=== PATIENT | male | born 2000 | race Native Hawaiian/Other Pacific Islander ===

== ENCOUNTER 2023-05-10 14:04 | Emergency (ER) | payer BC, SELFPAY ==
[2023-05-10 14:11] VITALS: BP 126/61; PULSE 61; RESP 16; TEMP 36.5; O2SAT 97; BMI 23.5
--- NOTE | 2023-05-10 14:21 | CRLHL7_ITS ---
For Patients: As a result of the Cures Act, medical imaging exams and procedure reports are released immediately into your electronic medical record. You may view this report before your referring provider. If you have questions, please contact your health care provider. Indication: Several day history of knee pain. Technique: Four views left knee. Comparison: None Findings: No fracture or dislocation. Normal alignment. No significant degenerative changes. Soft tissues unremarkable. Impression: No fracture or dislocation. Dictated by Lizandro Keane MD @ 05/10/2023 3:50:34 PM (Electronically Signed)
--- NOTE | 2023-05-10 14:29 | ED.GENADULT ---
HPI - General Adult General Time Seen by Provider: 14:47 Date Seen: 05/10/23 Chief complaint: Extremity Pain/Injury, Lower Stated complaint: L knee pain Time Seen by Provider: 05/10/23 14:07 Source: patient Mode of arrival: ambulatory Limitations: no limitations History of Present Illness HPI narrative: Patient is a 22-year-old male with no pertinent medical problems presenting to the emergency department for left knee pain. He states the pain started yesterday. States while he was walking he heard a popping sound sound in his left knee the knee become painful. Is not aware of any injuries in the knee. States it was not twisted and turning when this occurred. Denies any injuries. Denies numbness or weakness. Patient states he is able to ambulate but it is very difficult and painful. He has had no change in the pain. Has not noticed any swelling or warmth to with. Denies fevers, chills. Related Data Home Medications Medication Instructions Recorded Confirmed No Known Home Medications 03/23/23 03/23/23 Allergies Allergy/AdvReac Type Severity Reaction Status Date / Time No Known Drug Allergies Allergy Verified 03/23/23 13:33 Review of Systems Status of ROS: Reports: 6 or more systems reviewed and unremarkable except as noted in History and below [facility] Social History Smoking Status: Never smoker Do you use any of these nicotine containing products: None Second hand tobacco smoke exposure: No How often do you have a drink containing alcohol: never How often do you have six or more drinks on one occasion: Never AUDIT-C Alcohol total score: 0 Non-prescribed substance use: denies use service: No Exam Narrative: Exam Narrative: Const: Well-nourished, Well-developed, in mild distress Eyes: PERRL, no conjunctival injection, and symmetrical lids ENMT: Atraumatic external nose and ears. Moist mucous membranes. MSK:Extremities w/o deformity, decreased range of motion left knee secondary to pain. Some tenderness noted to the patient's knee on both the medial and lateral aspect and over the patella. Skin: Warm, Dry. No rashes or lesions. Neuro: Normal Muscle tone, No focal neurological deficits. Psych: Awake, Alert, & Oriented x3. Appropriate mood and affect. Const: Vital Signs, click to edit/add: Vital Signs - 24 hr 05/10/23 14:11 Temperature 97.7 F Pulse Rate [Pulse Oximeter] 61 Respiratory Rate 16 Blood Pressure [Ri ght Upper Arm] 126/61 Pulse Oximetry 97 Oxygen Delivery Me thod Room Air Course Vital Signs Vital signs: Initial Vital Signs Temperature 97.7 F 05/10/23 14:11 Temperature Source Temporal Artery Scan 05/10/23 14:11 Pulse Rate 61 05/10/23 14:11 Pulse Rhythm Regular 05/10/23 14:11 Respiratory Rate 16 05/10/23 14:11 Blood Pressure 126/61 05/10/23 14:11 Blood Pressure Mean 82 05/10/23 14:11 Blood Pressure Position Supine 05/10/23 14:11 Pulse Oximetry 97 05/10/23 14:11 Oxygen Delivery Method Room Air 05/10/23 14:11 Vital Signs Temperature 97.7 F 05/10/23 14:11 Pulse Rate 61 05/10/23 14:11 Respiratory Rate 16 05/10/23 14:11 Blood Pressure 126/61 05/10/23 14:11 Pulse Oximetry 97 05/10/23 14:11 Oxygen Delivery Method Room Air 05/10/23 14:11 Temperature 97.7 F 05/10/23 14:11 Pulse Rate 61 05/10/23 14:11 Respiratory Rate 16 05/10/23 14:11 Blood Pressure 126/61 05/10/23 14:11 Pulse Oximetry 97 05/10/23 14:11 Oxygen Delivery Method Room Air 05/10/23 14:11 Medical Decision Making MDM Narrative Medical decision making narrative: Patient is 22 years male presents emergency department for left knee pain. He says the pain started suddenly while he was walking. Does not note any injuries to it that he is aware of. Pain is unchanged since it 1st started yesterday. Did take Aleve for pain with minimal improvement. Denies ever hurting the knee before. Patient was given Toradol for pain. Patient's knee it does not appear swollen at this time and there is no erythema or warmth to the knee. Gout and septic arthritis very unlikely at this time. I do not believe a arthrocentesis is necessary. I do not believe any lab work is required at this time. We will do an x-ray to rule out any fractures. Those resulted in returned showing no concerning abnormalities. We are unable to definitively rule out a strain or sprain but he is doing well and we discharged home. We gave him information for primary care follow-up. Carlos wrap was placed around his knee. He was pain was better after the Toradol. Patient was offered crutches and states he does not need them at this time. Differential Diagnosis Differential Diagnosis: Fracture, septic arthritis, gout, muscle strain, knee sprain Imaging Data X-ray-left knee: Attestation: I have reviewed the pertinent imaging results. Radiologist's impression: No fracture or dislocation. Discharge Plan Discharge Clinical Impression: Knee sprain Qualifiers: Encounter type: initial encounter Involved ligament of knee: unspecified ligament Laterality: left Qualified Code(s): S83.92XA - Sprain of unspecified site of left knee, initial encounter Patient Disposition: Home, Self-Care Condition: Improved Instructions: Knee Sprain (DC) Additional Instructions: We gave information to set up primary care follow-up. Take Tylenol and ibuprofen for pain. There is no signs of fracture of this time but we are unable to definitively rule out soft tissue injuries. When she primary care or Orthopedics we can further evaluate her knee with further imaging if pain is not improving. Return for new or worsening symptoms Prescriptions: No Action No Known Home Medications Follow Up/Referrals: Provider,Not a Local [Primary Care Provider] - Stand Alone Forms: ChoiceMap Info Instructions
[2023-05-10] MEDS: KETOROLAC 30 MG/ML inj IM (14:31)
[2023-05-10 16:01] VITALS: BP 129/67; PULSE 57; O2SAT 99
--- NOTE | 2023-05-10 16:01 | ED.NURSE ---
SUSIE wrap applied to pt L knee.
--- NOTE | 2023-05-10 18:13 | ED.NURSE ---
[facility] in [place], [place] called stating patient is now in the ER there requesting an MRI of his knee. XRay images have been pushed. Will send the XRay report to fax #[phone]
== END 2023-05-10 16:06 | disposition home or self-care (01) ==
PROVIDERS: Emergency Provider Student in an Organized Health Care Education/Training Program
DX: S83.92XA Sprain of unspecified site of left knee, initial encounter (principal)
CPT/HCPCS: 73564; 96372; 99282; 99283; J1885

== ENCOUNTER 2025-01-16 14:47 | Emergency (ER) | payer OTHER, SELFPAY ==
--- OUTSIDE RECORDS SUMMARY | 2025-01-16 14:50 | XMS_ITS | Clinical Summary ---
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 Overview (10/13/2019): pos breath test Resolved Problems Problem Noted Date Diagnosed Date Resolved Date Chronic diarrhea 03/05/2018 02/04/2024 Reactive airway disease 03/28/200901/24 Immunizations Immunization Administration Dates Next Due COVID-19 vaccine (DatalinkBio NTech 30mcg/0.3mL) 12YO+ MAGGIE-SUCROSE PF, MDV 03/18/2022 DTaP 05/27/2007, 6,12/07/2003,03/07,01/27/2003,2002 HIB-HepB (Comvax) 09/04/2003,01/27/2003,11/04/19 03 HPV 9 (Gardasil 9) 10/09/2022,09/17/2015 Hepatitis A (Peds) 09/03/2010, 0,09/12/2008,03/02 Human Papilloma Virus Vaccine 08/21/2014, 013 Inactivated Polio Vaccine 05/27/2007,,09/04/2003,01/27,2002 Influenza A (H1N1), Inactiva kenrick (Age >=3 Years) 12/17/2009 Influenza A (H1N1), Live Intranasal 11/19/2009 Influenza, IIV3 (Age >=3 years) 09/03/20 10,10/31/2008,10/21/2006,09/09,10/02/2003,09/04/2003 Influenza, IIV4 10/09/2022, 0,10/11/2019,10/08,01/06/2017,07/25/2015,07/27/2014 Influenza, IIV4 (=>6mos) MDV 10/02/2017 Influenza,LAIV4 Live Intrana ronn (Flumist) 07/12/2013 MENINGOCOCCAL VACCINE 2 VIAL 2MO-55YO (MENVEO) 10/08/2018,08/21/2014 MMR 05/27/2007,10/21/2006,02/26/2004 MMRV 10/21/2006 Meningococcal B 11/20/2020,10/12/2020 Pneumococcal conj 7-Valent (Prevnar 7) 0 12/07/2003,03/07/2003,01/27/2003,11/04 Tdap 02/04/2024,08/21/2014,07/12/2013 Varicella Vaccine 12/04/2009,09/04/2003 Family History Medical History Relation Name Comments Good Health Father Genetic Other mother pituitar y tumor~no DM, CA~no SLE, RA Good Health Sister Relation Name Status Comments Father Other Sister Social History Tobacco Use Types Packs/Day Years Used Date Smoking Tobacco: Never Passive Smoke Exposure: Never Smokeless Tobacco: Never Tobacco Cessation:Counseling Given: Not Answered Comments:nonsmoking home Alcohol Use Standard Drinks/Week Comments No 0 (1 standard drink = 0.6 oz pur e alcohol) PHQ-2 Answer Date Recorded PHQ-2 TOTAL SCORE 0 06/16/2024 Social Connections Answer Date Recorded Do you often feel lonely or isolated from those around you? 0 02/04/2024 Financial Resource Strain Answer Date R ecorded Difficulty of Paying Living Expenses 3 02/04/2024 Difficulty of Paying Living Expenses Not on file 02/04/2024 Food Insecurity Answer Date Recorded Do you worry your food will run out before you are able to buy more? 1 02/04/2024 Transportation Needs Answer Date Record ed Does lack of transportation keep you from medica l appointments? 1 02/04/2024 Does lack of transportation keep you from work, meetings or getting things that you need? 1 02/04/2024 Housing Stability Answer Date Recorded What is your housing situation today? 1 02/04/2024 Utilities Answer Date Recorded Do you have trouble paying f or utilities (for example, heat, electricity, water, phone)? 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[employer] Gender Identity Not on file Sexual Orientation Not on file Obstetrics History Last Filed Vital Signs Vital Sign Reading Time Taken Comments Blood Pressure 124/64 06/25/2024 12:10 PM CDT Pulse 58 06/25/2024 12:10 PM CDT Temperature 36.7 C (98 F) 06/25/2024 12:10 PM CDT Respiratory Rate 12 06/25/2024 12:10 PM CDT Oxygen Saturation 98% 06/25/2024 12:10 PM CDT Inhaled Oxygen Concentration - - Weight 69 kg (152 lb 3.2 oz) 06/16/2024 7:56 AM CDT Height 164.2 cm (5' 4.65) 06/16/2024 7:56 AM CD T Body Mass Index 25.61 06/16/2024 7:56 AM CDT Plan of Treatment Health Maintenance Due Date Last Done Comments COVID-19 vaccine series ( season) 2024 03/18/2022, 03/06/2021, 02/06/2021 Influenza Vaccine (#1) 2024 , 10/12/2020, 10/11/2019, Additional history exists BMI (ht and wt on same day) for age 18+ 06/16/2025 06/16/2024, 02/04/2024, 10/12/2020 Depression screening for age 12+ 06/16/2025 06/16/2024, 03/18/2022, 10/12/2020, Additional history exists Tetanus booster 02/03/2034 02/04/2024, 07/27, 07/12/2013 Pneumococcal series for age 6-49 Aged Out 12/07/2003, 03/07/2003, 01/27/2003, Additional history exists No longer eligible based on patient's age to complete this topic HIV for age 15-65 Completed 03/18/2022 HPV series for age 9-26 Completed 10/09/20, 09/17/2015, 08/21/2014, Additional history exists Hepatitis C screening for age 18-79 Completed 02/04/2024 Tdap Completed 02/04/2024, 07/27, 07/12/2013 Procedures Procedure Name Priority Date/Time Associated Diagnosis Comments ANTI HCV Routine 02/04/2024 4:00 PM CDT Need for hepatitis C screening test ANTI HIV 1/2 Routine 03/18/2022 12:26 PM CDT Screening for HIV (human immunodeficiency virus) from Last 3 Months or Most Recently Relevant to Health Maintenance Results * ANTI HCV (02/04/2024 4:00 PM CDT) HEPATITIS C ANTIBODY Non-Reacti ve Non-React joey 02/05/2024 2:04 PM CDT [facility] Comment:Please note, per www .CDC.gov: If a patient is known to be at high risk of HCV infection, or is symptomatic, and the physician's suspicion of HCV infection is high, HCV RNA testing is often employed and is of diagnostic value, even after an initial negative anti-HCV test result. Blood BLOOD SPECIMEN / Unknown Venipuncture / Unknown 02/04/2024 4:00 PM CDT 02/04/2024 5:02 PM CDT us Bruce Whalen MD SEND OUTS Final Result [facility] [address] [place] [address], [place] * ANTI HIV 1/2 (03/18/2022 12:26 PM CDT) HIV-1/HIV-2 ANTIBODY Non-Reacti ve Non-Reacti ve 03/18/2022 11:22 PM CDT [facility] Comment:HIV-1 p24 and HIV-1/ HIV-2 Ab not detected. Blood BLOOD SPECIMEN / Unknown Venipuncture / Unknown 03/18/2022 12:26 PM CDT 03/18/2022 12:26 PM CDT us Bruce Whalen MD SEND OUTS Final Result [facility] [address] [place] [address], [place] from Last 3 Months or Most Recently Relevant to Health Maintenance Insurance [facility] [employer] [id number] [place] [address] Care Teams Dietitian Relationship Specialty Start Date End Date Bruce Whalen MD [address] [place] [address] PCP - General Family Practice 10/11/19
--- OUTSIDE RECORDS SUMMARY | 2025-01-16 14:50 | XMS_ITS | Clinical Summary ---
Author Organization [facility] Address [address] [facility] [place] [address] Care Team Providers Care Corporate Sales Manager Name Role Phone [facility] Primary Care Provider Allergies No known active allergies Medications NO ACTIVE MEDICATIONS Active montelukast (SINGULAIR) 5 MG chewable tabletIndicatio ns:Intermittent asthma Take 1 tablet by mouth At Bedtime. 90 tablet 3 1 Active albuterol (PROVENTIL HFA: VENTOLIN HFA) 108 (90 BASE) MCG/ACT inhalerIndicati ons:Intermitten t asthma Inhale 2 puffs into the lungs every 4 hours as needed for shortness of breath / dyspnea. 1 Inhaler 1 1 Active albuterol (ACCUNEB) 1.25 MG/3ML nebulizer solutionIndicat ions:Intermitte nt asthma Take 3 mLs by nebulization every 4 hours as needed for shortness of breath / dyspnea. 50 vial 5 1 Active ibuprofen (ADVIL,MOTRIN) 100 MG/5ML suspension Take 20 mLs (400 mg) by mouth every 6 hours as needed 120 mL 0 4 Active HYDROcodone-jordyn taminophen (LORTAB) 7.5-325 MG/15ML solution Take 7.5 mLs by mouth 4 times daily as needed for moderate to severe pain 1 Bottle 0 4 Active ondansetron (ZOFRAN ODT) 4 MG ODT tab Take 1 tablet (4 mg) by mouth every 8 hours as needed for nausea 10 tablet 8 Active Active Problems Problem Noted Date Diagnosed Date Intermittent asthma 09/11/2011 Seasonal allergic rhinitis 09/11/2011 Tinea corporis 04/10/2011 Immunizations Name Administration Dates Next Due DTAP (<7y) 10/21/2006, 4,03/07/2003,01/27/2003, HEPA 09/03/2010,12/04/2009,09/12/2008 ,03/02/2008 HIB (PRP-T) 09/04/2003,01/27/2003,2002 HepB 09/04/2003,01/27/2003,2002 Influenza (H1N1) 12/17/2009,11/19/2009 Influenza (IIV3) PF 09/03/2010, 9,09/12/2008,10/21/2006,,10/02/2003 MMR (MMRII) 10/21/2006,02/26/2004 Pneumococcal 23 valent 12/07/2003,03/07/2003,01/2003,2002 Poliovirus, inactivated (IPV) 10/21/2006, 003,01/27/2003,2002 Varicella (Varivax) 12/04/2009,10/21/2006,2002 Family History Medical History Relation Comments Family History Negative No family hx of Relation Status Comments Father Alive Mother Alive Sister Alive Social History Tobacco Use Types Packs/Day Years Used Date Smoking Tobacco: Never Smokeless Tobacco: Never Alcohol Use Standard Drinks/Week Comments No 0 (1 standard drink = 0.6 oz pur e alcohol) Sex and Gender Information Value Date Recorded Sex Assigned at Not on file 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 Gender Identity Not on file Sexual Orientation Not on file Last Filed Vital Signs Vital Sign Reading Time Taken Comments Blood Pressure 152/72 08/31/2019 5:51 PM ROLL BUCKER Pulse 68 08/31/2019 4:51 PM ROLL BUCKER Temperature 36.4 C (97.6 F) 08/31/2019 4:51 PM ROLL BUCKER Respiratory Rate 18 08/31/2019 4:51 PM ROLL BUCKER Oxygen Saturation 98% 08/31/2019 4:51 PM ROLL BUCKER Inhaled Oxygen Concentration - - Weight 61.2 kg (134 lb 14.7 oz) 08/31/2019 4:51 PM ROLL BUCKER Height 127 cm (4' 2) 09/11/2011 4:13 PM ROLL BUCKER Body Mass Index - - Plan of Treatment Not on file Insurance [address] [place] [id number] none (Work) [address] [place] [id number] [facility] Care Teams Corporate Sales Manager Relationship Specialty Start Date End Date [address] [address] PCP - General 08/31/19
[2025-01-16 14:57] VITALS: BP 135/76; PULSE 62; RESP 16; TEMP 37.3; O2SAT 97; BMI 27.8
[2025-01-16] MEDS: 0.9 % SODIUM CHLORIDE 1000 ml 1,000 ML IV (17:30)
[2025-01-16] MEDS: ONDANSETRON 2 MG/ML inj 4 MG IVP (17:30)
--- NOTE | 2025-01-16 17:35 | ED.NAVMDI ---
HPI - Nausea/Vomiting/Diarrhea General Date Seen: 01/16/25 Chief complaint: Diarrhea Stated complaint: Diarrhea since Thursday Time Seen by Provider: 01/16/25 16:49 Source: patient and family Mode of arrival: ambulatory Limitations: no limitations History of Present Illness HPI Narrative: This very nice [employer] student presents here with his mother Lisa, evaluation for himself is for diarrhea this been going on for the past 4 days. This started Thursday morning at 4:45 a.m., since then he has had anywhere from 7-12 episodes of loose stools which he describes as yellow he runny daily. Thursday he did have 2 episodes of vomiting with this is really improved he still feels a little bit nauseous and bloating he did have some abdominal discomfort the day but that is room reportedly gone away. He has been drinking fluids, try any bananas and toast. Has not taken any medications other than 2 doses of Pepto-Bismol on Thursday. Slight headache noted today. Denies any recent contacts event sick, he did travel to [place] the 26 of December through the 02 of January. No other contacts have been sick however. He has no exotic animals he does not eat wild meat, he is not on but been on antibiotics in the past 3 months and no history of C diff in the past. Denies a sore throat, rash, no cough cold-like symptoms fevers chills or sweats. Thinks that he is probably not getting enough fluids. There is no urinary symptoms at all. He is a student at [employer] [facility], taking Psychology and public health No history of any operations he is on no chronic medications no known allergies. MD elicited complaint: nausea, vomiting and diarrhea Associated nausea: Yes Associated abdominal pain: No Location of pain: diffuse Radiation: diffuse Pain consistency: now resolved Quality: cramping Exacerbating factors: eating Relieving factors: none Associated symptoms: denies other symptoms Related Data Previous Rx's ?Medication ?Instructions ?Recorded ondansetron 4 mg disintegrating 4 mg PO TID PRN nausea and 01/16/25 tablet vomiting #10 tabs Allergies Allergy/AdvReac Type Severity Reaction Status Date / Time No Known Drug Allergies Allergy Verified 03/23/23 13:33 Review of Systems Status of ROS: Reports: 10 or more systems reviewed and unremarkable except as noted in History and below GI: Reports: nausea PFSH PFSH Social History Smoking Status: Never smoker Do you use any of these nicotine containing products: None Second hand tobacco smoke exposure: No How often do you have a drink containing alcohol: never How often do you have six or more drinks on one occasion: Never AUDIT-C Alcohol total score: 0 Non-prescribed substance use: denies use service: No Exam Narrative: Exam Narrative: On examination in room 3 he is in no apparent distress he is pleasant alert pupils equal round reactive to light there is no scleral icterus redness is TMs are normal his oropharynx is entirely normal as decent hydration is noted. His neck is supple there is no meningismus chest is good air entry bilaterally no wheezing crackles noted his heart sounds are normal no clicks murmurs or gallops his abdomen is soft there is no guarding no organomegaly little bit of a doughy complexion, bowel sounds are normal, no CVA tenderness, moves all extremities independently well and absence of any rashes is noted he is neurologically intact moving all his extremities. Const: Vital Signs, click to edit/add: Vital Signs - 24 hr 01/16/25 14:57 Temperature 99.1 F Pulse Rate [Pulse Oximeter] 62 Respiratory Rate 16 Blood Pressure [Ri ght Upper Arm] 135/76 Pulse Oximetry 97 Oxygen Delivery Me thod Room Air Documenting provider has reviewed patient's vital signs: yes Course Course ED Course: I visited with patient and mother, he is feeling good, he is on been unable to give us a sample of diarrhea, I think it would be reasonable to send him home at this point, as labs are all within fairly normal range his hepatic transaminases were slightly elevated, although not in the range where I would be considering hepatitis or some other problematic issue. I would suggest follow-up of ongoing diarrhea, we will send him home with a stool sample container, they should follow-up with primary care within the next week. And possibly consider rechecking his liver function tests Vital Signs Vital signs: Initial Vital Signs Temperature 99.1 F 01/16/25 14:57 Temperature Source Temporal Artery Scan 01/16/25 14:57 Pulse Rate 62 01/16/25 14:57 Respiratory Rate 16 01/16/25 14:57 Blood Pressure 135/76 01/16/25 14:57 Blood Pressure Mean 95 01/16/25 14:57 Blood Pressure Position Sitting 01/16/25 14:57 Pulse Oximetry 97 01/16/25 14:57 Oxygen Delivery Method Room Air 01/16/25 14:57 Vital Signs Temperature 99.1 F 01/16/25 14:57 Pulse Rate 62 01/16/25 14:57 Respiratory Rate 16 01/16/25 14:57 Blood Pressure 135/76 01/16/25 14:57 Pulse Oximetry 97 01/16/25 14:57 Oxygen Delivery Method Room Air 01/16/25 14:57 Temperature 99.1 F 01/16/25 14:57 Pulse Rate 62 01/16/25 14:57 Respiratory Rate 16 01/16/25 14:57 Blood Pressure 135/76 01/16/25 14:57 Pulse Oximetry 97 01/16/25 14:57 Oxygen Delivery Method Room Air 01/16/25 14:57 Medications Administered Medications: Discontinued Medications Generic Name Dose Route Start Last Admin Trade Name Freq PRN Reason Stop Dose Admin Sodium Chloride 1,000 mls @ 1,000 mls/hr 01/16/25 17:15 01/16/25 18:37 0.9 % Sodium Chloride 1000 Ml IV 01/16/25 18:14 Infused .Q1H MARIANO Infusion Ketorolac Tromethamine 30 mg 01/16/25 17:40 01/16/25 17:47 Ketorolac 30 Mg/Ml Inj IVP 01/16/25 17:41 30 mg ONCE ONE Administration Ondansetron HCl 4 mg 01/16/25 17:14 01/16/25 17:30 Ondansetron 2 Mg/Ml Inj IVP 01/16/25 17:15 4 mg ONCE ONE Administration MDM - Nausea/Vomiting/Diarrhea MDM Narrative Medical decision making narrative: Differential diagnosis considered include but not limited to viral gastroenteritis, food poisoning, bowel obstruction, Clostridium difficile, Campylobacter, Shigella, rotavirus, medication side effects, dysentery, diverticulitis, Crohn's disease and colitis Medical Records Attestation: I reviewed the patient's medical records. Lab Data Attestation: I reviewed the patient's lab results. Labs: Lab Results 01/16/25 Range/Units 17:30 WBC 5.77 (4.50-11.00) K/uL RBC 5.02 (4.30-5.90) m/uL Hgb 14.9 (13.5-17.5) gm/dL Hct 44.9 (37.0-53.0) % MCV 89 (80-100) fL MCH 30 (26-34) pg MCHC 33 (32-36) gm/dL RDW Coeff of Scott 12.2 (11.5-15.5) % Plt Count 184 (140-440) K/uL Neut % (Auto) 54.4 (42.0-72.0) % Lymph % (Auto) 33.6 (20-44) % [place] % (Auto) 9.2 (0.0-11.0) % Eos % (Auto) 2.3 (0.0-7.0) % Baso % (Auto) 0.3 (0.0-3.0) % Neut # (Auto) 3.14 (1.7-7.0) K/uL Lymph # (Auto) 1.94 (0.90-2.90) K/uL [place] # (Auto) 0.50 (0.00-0.90) K/UL Eos # (Auto) 0.13 (0.00-0.50) K/uL Baso # (Auto) 0.02 (0.00-0.30) K/uL Abs Immat Gran (auto) 0.01 (0.00-0.30) K/uL Imm/Tot Granulo (auto) 0.2 % Sodium 139 (135-149) mmol/L Potassium 4.0 (3.6-5.1) mmol/L Chloride 104 (96-114) mmol/L Carbon Dioxide 26 (20-32) mmol/L Anion Gap 9 (7-15) mEq/L BUN 12 (5-24) mg/dL Creatinine 0.9 (0.5-1.5) mg/dL Estimated Creat Clear 107.80 Estimated GFR 124 ml/min Glucose 89 (60-115) mg/dL Lactate 0.9 (0.5-1.9) mmol/L Calcium 9.4 (8.4-10.6) mg/dL Total Bilirubin 0.7 (0.1-1.5) mg/dL Direct Bilirubin 0.2 (0.0-0.5) mg/dL AST 44 H (12-35) U/L ALT 97 H (4-50) U/L Alkaline Phosphatase 59 (40-150) U/L C-Reactive Protein 1.7 H (0.5-1.0) mg/dL Total Protein 7.3 (6.0-8.3) g/dL Albumin 4.5 (3.3-5.0) g/dL Lipase 43 (23-300) U/L Procalcitonin 0.10 (<0.50) ng/mL Discharge Plan Discharge Clinical Impression: Diarrhea Patient Disposition: Home w/ Parent or Adult Instructions: Acute Diarrhea (ED) Additional Instructions: Home rest, use of brat diet, (bananas rice applesauce and toast), he may also use the Zofran, lots of clear fluids and see how it goes, I suspect that this will clear over the next 24-48 hours. Increasing abdominal pain, fevers chills, nausea vomiting, would suggest to be seen. You can also use some Pepto-Bismol twice a day which is actually also great treatment, for the common types of diarrhea. It takes a while to get going, so I would not abandoned this after to 3 days, and probably use it for 3-4. It will also turn your stools black stool be warned.. Send the c'diff home with him to collect. Activity Level: Light activity Discharge Diet: Clear Liquid Prescriptions: New ondansetron 4 mg tablet,disintegrating 4 mg PO TID PRN (Reason: nausea and vomiting) Qty: 10 0RF Follow Up/Referrals: Provider,Not a Local [Primary Care Provider] - Stand Alone Forms: [facility] Info Instructions
[2025-01-16 17:36] LABS: Lactate* 0.9 mmol/L (0.5-1.9)
--- OUTSIDE RECORDS SUMMARY | 2025-01-16 17:38 | XMS_ITS | Clinical Summary ---
Author Organization [facility] Address [address] [facility] 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 Gender Identity Not on file Sexual Orientation Not on file Last Filed Vital Signs Vital Sign Reading Time Taken Comments Blood Pressure 152/72 08/31/2019 5:51 PM HONING MACHINE OPERATOR SEMIAUTOMATIC Pulse 68 08/31/2019 4:51 PM HONING MACHINE OPERATOR SEMIAUTOMATIC Temperature 36.4 C (97.6 F) 08/31/2019 4:51 PM HONING MACHINE OPERATOR SEMIAUTOMATIC Respiratory Rate 18 08/31/2019 4:51 PM HONING MACHINE OPERATOR SEMIAUTOMATIC Oxygen Saturation 98% 08/31/2019 4:51 PM HONING MACHINE OPERATOR SEMIAUTOMATIC Inhaled Oxygen Concentration - - Weight 61.2 kg (134 lb 14.7 oz) 08/31/2019 4:51 PM HONING MACHINE OPERATOR SEMIAUTOMATIC Height 127 cm (4' 2) 09/11/2011 4:13 PM HONING MACHINE OPERATOR SEMIAUTOMATIC Body Mass Index - - Plan of Treatment Not on file Insurance [address] [place] [id number] none (Work) [address] [place] [id number] [facility] Care Teams Principal Scientist Relationship Specialty Start Date End Date [address] [address] PCP - General 08/31/19
--- OUTSIDE RECORDS SUMMARY | 2025-01-16 17:38 | XMS_ITS | Clinical Summary ---
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 [place] [address], [place] * ANTI HIV 1/2 (03/18/2022 12:26 PM CDT) HIV-1/HIV-2 ANTIBODY Non-Reacti ve Non-Reacti ve 03/18/2022 11:22 PM CDT [facility] Comment:HIV-1 p24 and HIV-1/ HIV-2 Ab not detected. Blood BLOOD SPECIMEN / Unknown Venipuncture / Unknown 03/18/2022 12:26 PM CDT 03/18/2022 12:26 PM CDT us Bruce Whalen MD SEND OUTS Final Result [facility] [address] [place] [address], [place] from Last 3 Months or Most Recently Relevant to Health Maintenance Insurance [facility] [employer] [id number] [place] [address] Care Teams Buckle Sewer Relationship Specialty Start Date End Date Bruce Whalen MD [address] [place] [address] PCP - General Family Practice 10/11/19
[2025-01-16 17:42] LABS: Basophils Absolute Auto 0.02 K/uL (0.00-0.30); Basophils Percent Auto 0.3 % (0.0-3.0); Eosinophils Absolute Auto 0.13 K/uL (0.00-0.50); Eosinophils Percent Auto 2.3 % (0.0-7.0); Hematocrit 44.9 % (37.0-53.0); Hemoglobin* 14.9 gm/dL (13.5-17.5); Immature Granulocytes Abs Auto 0.01 K/uL (0.00-0.30); Immature Granulocytes Pct Auto 0.2 %; Lymphocytes Absolute Auto 1.94 K/uL (0.90-2.90); Lymphocytes Percent Auto 33.6 % (20-44); Mean Corpuscular HGB Conc 33 gm/dL (32-36); Mean Corpuscular Hemoglobin 30 pg (26-34); Mean Corpuscular Volume 89 fL (80-100); Monocytes Percent Auto 9.2 % (0.0-11.0); Neutrophils Absolute Auto 3.14 K/uL (1.7-7.0); Neutrophils Percent Auto 54.4 % (42.0-72.0); Platelet Count* 184 K/uL (140-440); RDW Coefficient of Variation % 12.2 % (11.5-15.5); Red Blood Count 5.02 m/uL (4.30-5.90); White Blood Count* 5.77 K/uL (4.50-11.00)
[2025-01-16] MEDS: KETOROLAC 30 MG/ML inj IVP (17:47)
[2025-01-16 17:58] LABS: Albumin* 4.5 g/dL (3.3-5.0); Chloride* 104 mmol/L (96-114); Sodium* 139 mmol/L (135-149)
[2025-01-16 18:00] LABS: Blood Urea Nitrogen* 12 mg/dL (5-24); Creatinine* 0.9 mg/dL (0.5-1.5); Estimated Glomerular Filt Rate 124 ml/min
[2025-01-16 18:01] LABS: Alanine Aminotransferase* 97 U/L (4-50); Alkaline Phosphatase* 59 U/L (40-150); Anion Gap 9 mEq/L (7-15); Aspartate Amino Transferase* 44 U/L (12-35); Bilirubin Direct* 0.2 mg/dL (0.0-0.5); Bilirubin Total* 0.7 mg/dL (0.1-1.5); Calcium* 9.4 mg/dL (8.4-10.6); Carbon Dioxide* 26 mmol/L (20-32); Glucose* 89 mg/dL (60-115); Lipase* 43 U/L (23-300); Total Protein* 7.3 g/dL (6.0-8.3)
[2025-01-16 18:04] LABS: C Reactive Protein* 1.7 mg/dL (0.5-1.0)
[2025-01-16 18:16] LABS: Slide Review Reflex No
== END 2025-01-16 19:32 | disposition home or self-care (01) ==
PROVIDERS: Emergency Provider Family Medicine
DX: R19.7 Diarrhea, unspecified (principal)
CPT/HCPCS: 36415; 80048; 80076; 83605; 83690; 84145; 85025; 86140; 87493; 96374; 96375; 99283; 99284; J1885; J2405; J7030